=== PATIENT | male | born 1990 | race Caucasian/White ===

== ENCOUNTER 2021-08-19 16:03 | Observation (INO) ==
[2021-08-19] MEDS ORDERED: NS 1,000 ML IV 1,000 ML IV ONE ×2 (16:12→17:21)
[2021-08-19] MEDS ORDERED: NS 1,000 ML IV 1,000 ML ONE ×2 (16:14→17:00)
--- NOTE | 2021-08-19 16:18 | DR.CP ---
HPI Time Seen Time Seen by Provider: 08/19/21 16:07 Complaint Chief Complaint Doctor Comments: 30 y/o male presents for evaluation. Is a welder gas, dehydrated 2 weeks ago. Not feeling well since yesterday. + lightheaded, having neck, upper back andd chest tightness. + dizzy with standing, blurred vision. Having some nausea. Denies fever, chills, URI symptoms, bowel or bladder issues. + h/o HTN, recently had a diuretic added, did not taking this am. COVID-19 Coronavirus risk:travel/contact w/high risk person: No Has patient experienced Coronavirus symptoms: No Reviewed Nurses Notes Review: Yes Location Chest Pain Radiation Location: None Associated Signs and Symptoms Associated Signs and Symptoms: Shortness of Breath and Nausea/Vomiting PMH PMH Past Surgical History: No Family History Family Medical History: Hypertension Social History Do you use any recreational Drugs:: No Travel Risk Coronavirus risk:travel/contact w/high risk person: No Has patient experienced Coronavirus symptoms: No ROS Review of Systems Constitutional: Weakness Eyes: Blurred Vision ENTM: No Symptoms Reported Respiratoy: No Symptoms Reported Cardiovascular: Chest Pain Gastrointestinal/Abdominal: Nausea Genitourinary: No Symptoms Reported Neurological: Weakness and Dizziness Musculoskeletal: Other (muscle cramps) Integumentary: No Symptoms Reported Hematologic/Lymphatic: No Symptoms Reported Psychiatric: No Symptoms Reported All Other Systems: Reviewed and Negative PE Vitals Vitals: Temperature 97.6 F Pulse Rate 92 Respiratory Rate 16 Blood Pressure [Left Arm] 144/96 Blood Pressure [Right Arm] 136/72 Blood Pressure 106/58 O2 Sat by Pulse Oximetry 100 General Limitations: No Limitations General Appearance: Alert and In No Apparent Distress Head Head Exam: Normal Inspection Eyes Eye exam: PERRL and EOMI ENT ENT Exam: Normal Oropharynx, Mucous Membranes Moist and TM's Normal Bilaterally Chest Chest Inspection: Normal Inspection Respiratory Respiratory Exam: Normal Lung Sounds Bilat; negative Accessory Muscle Use and Respiratory Distress Respiratory Exam: Bilateral: Clear to Auscultation Cardiovascular Cardiovascular Exam: Regular Rate, Normal Rhythm and Normal Heart Sounds Abdominal Exam Abdominal Exam: Normal Inspection, Normal Bowel Sounds, Soft and Tenderness (mild, across lower abdomen) Extremities Extremities Exam: Normal Inspection and Full ROM; negative Edema Back Back Exam: Normal Inspection; negative Tenderness Neurologic Neurological Exam: Alert, Oriented X3 and CN II-XII Intact; negative Motor Sensory Deficit Psychiatric Psychiatric Exam: Normal Affect Skin Skin Exam: Warm and Dry COURSE Treatment Treatment: Pt clinically with heat exhaustion, + recently had diuretic added to his HTN medicines. W/u initiated. Given IV fluids. 1744 - labs show elevated Cr 3.5, c/w non traumatic renal injury, probably due to dehydration, heat injury. Recommend admission for further treatment, pt informed. Discussed with Dr Jorge, accepts the admission. ROR Labs Reviewed Laboratory Results Reviewed?: Yes Result Diagrams: 08/19/21 16:20 08/19/21 16:20 Laboratory: WBC 10.6 X10^3/uL (3.6-10.0) H 08/19/21 16:20 RBC 5.08 X10^6/uL (4.7-6.0) 08/19/21 16:20 Hgb 14.7 g/dL (13.5-18.0) 08/19/21 16:20 Hct 42.4 % (42.0-54.0) 08/19/21 16:20 MCV 83.4 fL (80.0-100.0) 08/19/21 16:20 MCH 28.9 pg (27.0-34.0) 08/19/21 16:20 MCHC 34.6 g/dL (33.0-35.0) 08/19/21 16:20 RDW 13.7 % (11.6-16.5) 08/19/21 16:20 Plt Count 337 X10^3/uL (150.0-450.0) 08/19/21 16:20 MPV 8.5 fL (7.4-11.0) 08/19/21 16:20 Neut % (Auto) 71.4 % (42.0-75.0) 08/19/21 16:20 Lymph % (Auto) 15.3 % (21.0-51.0) L 08/19/21 16:20 [place] % (Auto) 6.9 % (0.0-13.0) 08/19/21 16:20 Eos % (Auto) 5.7 % (0.9-2.9) H 08/19/21 16:20 Baso % (Auto) 0.7 % (0.2-1.0) 08/19/21 16:20 Neut # (Auto) 7.6 x10^3/uL (2.2-4.8) H 08/19/21 16:20 Lymph # (Auto) 1.6 X10^3/uL (1.3-2.9) 08/19/21 16:20 [place] # (Auto) 0.7 x10^3/uL (0.3-0.8) 08/19/21 16:20 Eos # (Auto) 0.6 x10^3/uL (0.0-0.2) H 08/19/21 16:20 Baso # (Auto) 0.1 X10^3/uL (0.0-0.1) 08/19/21 16:20 Absolute Nucleated RBC 0.1 /100WBC 08/19/21 16:20 Sodium 132 mmol/L (136-145) L 08/19/21 16:20 Corrected Sodium TNP 08/19/21 16:20 Potassium 3.8 mmol/L (3.5-5.1) 08/19/21 16:20 Chloride 94 mmol/L (98-107) L 08/19/21 16:20 Carbon Dioxide 27.9 mmol/L (21-32) 08/19/21 16:20 BUN 35 mg/dL (7-18) H 08/19/21 16:20 Creatinine 3.53 mg/dL (0.70-1.30) H 08/19/21 16:20 Est GFR (MDRD) Af Amer 26 (>60) L 08/19/21 16:20 Est GFR (MDRD) Non-Af 21 (>60) L 08/19/21 16:20 Glucose 93 mg/dL (65-99) 08/19/21 16:20 Calcium 9.0 mg/dL (8.5-10.1) 08/19/21 16:20 Corrected Calcium TNP 08/19/21 16:20 Total Bilirubin 0.40 mg/dL (0.2-1.0) 08/19/21 16:20 AST 16 Units/L (15-37) 08/19/21 16:20 ALT 16 Units/L (12-78) 08/19/21 16:20 Alkaline Phosphatase 86 Units/L (46-116) 08/19/21 16:20 Creatine Kinase 220 Units/L (39-308) 08/19/21 16:20 CK-MB (CK-2) 4.0 ng/mL (0-4.0) 08/19/21 16:20 CK/CKMB % Calc 1.8 % (<4) 08/19/21 16:20 Troponin I High Sens 6.6 ng/L (4.0-60.0) 08/19/21 16:20 Total Protein 7.9 g/dL (6.4-8.2) 08/19/21 16:20 Albumin 4.3 g/dL (3.4-5.0) 08/19/21 16:20 Globulin 3.6 g/dL (2.5-4.5) 08/19/21 16:20 Albumin/Globulin Ratio 1.2 Ratio (1.1-2.1) 08/19/21 16:20 Lipase 100 Units/L (73-393) 08/19/21 16:20 Other Results Comments: + abnormal kidney #s XRAY XRAY Interpreted by: Both X-ray Results: CXR without acute abnormalities EKG Rate: 83 [place]: Normal Rhythm: NSR Block: None Hypertrophy: None ST: Normal Opioid Opioid Risk Tool Age (Tera box if 16-45): Yes History of Preadolescent Sexual Abuse: No Total: 1 Total Score Risk Category: Low Risk Copyright: Billy VELÁSQUEZ predicting aberrant behaviors Diagnosis Discharge Problem: Acute nontraumatic kidney injury Instructions Forms: Precautions for COVID19 [facility] Social Distancing
[2021-08-19 16:30] LABS: BASOPHILS # (AUTO) 0.1 X10^3/uL (0.0-0.1); BASOPHILS % (AUTO) 0.7 % (0.2-1.0); EOSINOPHILS # (AUTO) 0.6 x10^3/uL (0.0-0.2); EOSINOPHILS % (AUTO) 5.7 % (0.9-2.9); HEMATOCRIT 42.4 % (42.0-54.0); HEMOGLOBIN 14.7 g/dL (13.5-18.0); LYMPHOCYTES # (AUTO) 1.6 X10^3/uL (1.3-2.9); LYMPHOCYTES % (AUTO) 15.3 % (21.0-51.0); MEAN CORPUSCULAR HEMOGLOBIN 28.9 pg (27.0-34.0); MEAN CORPUSCULAR HGB CONC 34.6 g/dL (33.0-35.0); MEAN CORPUSCULAR VOLUME 83.4 fL (80.0-100.0); MEAN PLATELET VOLUME 8.5 fL (7.4-11.0); MONOCYTES # (AUTO) 0.7 x10^3/uL (0.3-0.8); MONOCYTES % (AUTO) 6.9 % (0.0-13.0); NEUTROPHILS # (AUTO) 7.6 x10^3/uL (2.2-4.8); NEUTROPHILS % (AUTO) 71.4 % (42.0-75.0); RED BLOOD COUNT 5.08 X10^6/uL (4.7-6.0); RED CELL DISTRIBUTION WIDTH 13.7 % (11.6-16.5); WHITE BLOOD COUNT 10.6 X10^3/uL (3.6-10.0)
[2021-08-19 16:49] LABS: ALANINE AMINOTRANSFERASE 16 Units/L (12-78); ALBUMIN 4.3 g/dL (3.4-5.0); ALKALINE PHOSPHATASE 86 Units/L (46-116); ASPARTATE AMINO TRANSFERASE 16 Units/L (15-37); BLOOD UREA NITROGEN 35 mg/dL (7-18); CARBON DIOXIDE 27.9 mmol/L (21-32); CHLORIDE 94 mmol/L (98-107); CKMB % 1.8 % (<4); CREATINE KINASE 220 Units/L (39-308); CREATININE 3.53 mg/dL (0.70-1.30); LIPASE 100 Units/L (73-393); SODIUM 132 mmol/L (136-145); TOTAL PROTEIN 7.9 g/dL (6.4-8.2); eGFR NON BLACK RACES 21 (>60)
--- NOTE | 2021-08-19 16:56 | RAD ---
HISTORYRelevant Clinical Information c/o nausea, neck pain, shortness of breath, chest pressure and states "everything goes black when I move".STUDYCHEST, 1 VIEWCOMPARISONNoneFINDINGSThe trachea is midline. The cardiac silhouette is unremarkable. The lungs are clear without focal infiltrate or effusion. The bony thorax is unremarkable.IMPRESSIONNo acute cardiopulmonary disease.Electronically signed by: TAMI ANTHONY (August 19, 2021 16:55:26)
[2021-08-19 19:20] LABS: BILIRUBIN,URINE NEGATIVE (NEGATIVE); BLOOD/HEMOGLOBIN,URINE NEGATIVE (NEGATIVE); GLUCOSE, URINE NEGATIVE (NEGATIVE); KETONES,URINE NEGATIVE (NEGATIVE); LEUKOCYTE ESTERASE ,URINE 1+ (NEGATIVE); NITRITES,URINE NEGATIVE (NEGATIVE); PROTEIN,URINE 1+ (NEGATIVE); UROBILINOGEN,URINE NORMAL (NORMAL)
[2021-08-19 19:51] LABS: COLOR,URINE YELLOW (YELLOW)
[2021-08-19 19:52] LABS: APPEARANCE,URINE SLIGHTLY HAZY (CLEAR)
[2021-08-19 19:54] LABS: BACTERIA,URINE 2+ /HPF (NEGATIVE); RBC,URINE 0-2 /HPF (0-3); SQUAMOUS EPITHELIAL CELL,UR NEGATIVE /HPF (NEGATIVE)
[2021-08-19 19:55] LABS: GRANULAR CASTS,URINE FEW /LPF (NEGATIVE); HYALINE CASTS, URINE MANY /LPF (NEGATIVE)
[2021-08-19] MEDS: NS 1,000 ML IV 1,000 ML IV SCH (20:12)
[2021-08-19 21:05] VITALS: BMI 27.7
[2021-08-20] MEDS: NS 1,000 ML IV 1,000 ML IV SCH ×5 (02:01→21:02)
[2021-08-20 05:02] LABS: BASOPHILS % (AUTO) 0.6 % (0.2-1.0); EOSINOPHILS # (AUTO) 0.4 x10^3/uL (0.0-0.2); EOSINOPHILS % (AUTO) 5.7 % (0.9-2.9); HEMATOCRIT 36.7 % (42.0-54.0); LYMPHOCYTES # (AUTO) 2.8 X10^3/uL (1.3-2.9); LYMPHOCYTES % (AUTO) 43.8 % (21.0-51.0); MEAN CORPUSCULAR HEMOGLOBIN 28.6 pg (27.0-34.0); MEAN CORPUSCULAR HGB CONC 34.3 g/dL (33.0-35.0); MEAN CORPUSCULAR VOLUME 83.2 fL (80.0-100.0); MONOCYTES # (AUTO) 0.6 x10^3/uL (0.3-0.8); MONOCYTES % (AUTO) 9.6 % (0.0-13.0); NEUTROPHILS # (AUTO) 2.6 x10^3/uL (2.2-4.8); NEUTROPHILS % (AUTO) 40.3 % (42.0-75.0); RED CELL DISTRIBUTION WIDTH 13.8 % (11.6-16.5); WHITE BLOOD COUNT 6.4 X10^3/uL (3.6-10.0)
[2021-08-20 05:35] LABS: ALANINE AMINOTRANSFERASE 14 Units/L (12-78); ALKALINE PHOSPHATASE 73 Units/L (46-116); ASPARTATE AMINO TRANSFERASE 17 Units/L (15-37); BLOOD UREA NITROGEN 30 mg/dL (7-18); CALCIUM 8.1 mg/dL (8.5-10.1); CARBON DIOXIDE 26.1 mmol/L (21-32); CHLORIDE 104 mmol/L (98-107); COR CA(FOR HYPOALB) 8.9 mg/dL (8.5-10.1); SODIUM 138 mmol/L (136-145); TOTAL PROTEIN 5.9 g/dL (6.4-8.2); eGFR NON BLACK RACES 46 (>60)
[2021-08-20 05:48] LABS: HEMOGLOBIN 12.6 g/dL (13.5-18.0)
[2021-08-20] MEDS: KLONOPIN TAB 1 MG PO PRN ×2 (09:11→15:24)
--- NOTE | 2021-08-20 13:10 | DR.H&P ---
H&P History & Physical for Day of: H&P Date: 08/20/21 Chief Complaint Chief Complaint: Generalized weakness Dizziness, lightheaded Allergies Allergies Allergy/AdvReac Type Severity Reaction Status Date / Time No Known Drug Allergies Allergy Verified 04/07/18 12:01 History of Present Illness History of Present Illness: Pt is a 31 year old male with past medical history of ARASH, MAT(subutex), presenting with weakness, dizziness, lightheaded. He was recently started on hctz and has been working at his job outdoors in warm to hot temperatures. He reports feeling hot, lightheaded, for the past week. Labs/imaging: Wbc 10.6>6.4, Hgb 14.7>12.6, Plt 337>253, Na 138, K 4.1, Creatinine 3.53>1.80, Glucose 97. COVID-19 negative, CXR: No acute cardiopulmonary disease. Pt was admitted for dehydration and acute kidney injury. He was given IVF bolus NS and started on NS@150ml/h. This morning on examination he reports some improvement in his symptoms. His renal function has significantly improved. Will require at least another day of IVF hydration and can possibly be discharged over the weekend. Hold nephrotoxic agents. Continue to closely monitor and follow up labs in the morning. Past Medical History Past Medical History: Hypertension Past Surgical History Surgical History: Ortho Surgery Family History Family Medical History: Coronary Artery Disease and Hypertension Social History Does patient currently use any type of tobacco product: Yes Have you used tobacco products in the last 12 months: Yes Type of Tobacco Use: Cigarettes How many years tobacco product used: 18 Does any household member use tobacco: Yes Alcohol Use: None Drug Use: Prescription Drugs Medications Home Medications: No Known Drug Allergies Allergy (Verified 04/07/18 12:01) CONTINUE taking the following medications buprenorphine HCl [Subutex] 8 mg SUBLINGUAL BID 08/19/21 [History] clonazepam 1 mg PO BID PRN 08/19/21 [History] hydrochlorothiazide 25 mg PO DAILY 08/19/21 [History] lisinopril 20 mg PO DAILY 08/19/21 [History] Labs Result Diagrams: 08/20/21 03:36 08/20/21 03:36 Labs: 08/19/21 19:05 Urine,Clean Catch Urine Culture - Preliminary Laboratory WBC 6.4 X10^3/uL (3.6-10.0) 08/20/21 03:36 RBC 4.40 X10^6/uL (4.7-6.0) L 08/20/21 03:36 Hgb 12.6 g/dL (13.5-18.0) L D 08/20/21 03:36 Hct 36.7 % (42.0-54.0) L 08/20/21 03:36 MCV 83.2 fL (80.0-100.0) 08/20/21 03:36 MCH 28.6 pg (27.0-34.0) 08/20/21 03:36 MCHC 34.3 g/dL (33.0-35.0) 08/20/21 03:36 RDW 13.8 % (11.6-16.5) 08/20/21 03:36 Plt Count 253 X10^3/uL (150.0-450.0) 08/20/21 03:36 MPV 9.0 fL (7.4-11.0) 08/20/21 03:36 Neut % (Auto) 40.3 % (42.0-75.0) L 08/20/21 03:36 Lymph % (Auto) 43.8 % (21.0-51.0) 08/20/21 03:36 [place] % (Auto) 9.6 % (0.0-13.0) 08/20/21 03:36 Eos % (Auto) 5.7 % (0.9-2.9) H 08/20/21 03:36 Baso % (Auto) 0.6 % (0.2-1.0) 08/20/21 03:36 Neut # (Auto) 2.6 x10^3/uL (2.2-4.8) 08/20/21 03:36 Lymph # (Auto) 2.8 X10^3/uL (1.3-2.9) 08/20/21 03:36 [place] # (Auto) 0.6 x10^3/uL (0.3-0.8) 08/20/21 03:36 Eos # (Auto) 0.4 x10^3/uL (0.0-0.2) H 08/20/21 03:36 Baso # (Auto) 0.0 X10^3/uL (0.0-0.1) 08/20/21 03:36 Absolute Nucleated RBC 0.0 /100WBC 08/20/21 03:36 Sodium 138 mmol/L (136-145) 08/20/21 03:36 Corrected Sodium TNP 08/20/21 03:36 Potassium 4.1 mmol/L (3.5-5.1) 08/20/21 03:36 Chloride 104 mmol/L (98-107) 08/20/21 03:36 Carbon Dioxide 26.1 mmol/L (21-32) 08/20/21 03:36 BUN 30 mg/dL (7-18) H 08/20/21 03:36 Creatinine 1.80 mg/dL (0.70-1.30) H 08/20/21 03:36 Est GFR (MDRD) Af Amer 56 (>60) L 08/20/21 03:36 Est GFR (MDRD) Non-Af 46 (>60) L 08/20/21 03:36 Glucose 97 mg/dL (65-99) 08/20/21 03:36 POC Glucose (mg/dL) 124 mg/dL (65-99) H 08/20/21 11:36 Calcium 8.1 mg/dL (8.5-10.1) L 08/20/21 03:36 Corrected Calcium 8.9 mg/dL (8.5-10.1) 08/20/21 03:36 Total Bilirubin 0.20 mg/dL (0.2-1.0) 08/20/21 03:36 AST 17 Units/L (15-37) 08/20/21 03:36 ALT 14 Units/L (12-78) 08/20/21 03:36 Alkaline Phosphatase 73 Units/L (46-116) 08/20/21 03:36 Creatine Kinase 220 Units/L (39-308) 08/19/21 16:20 CK-MB (CK-2) 4.0 ng/mL (0-4.0) 08/19/21 16:20 CK/CKMB % Calc 1.8 % (<4) 08/19/21 16:20 Troponin I High Sens 6.6 ng/L (4.0-60.0) 08/19/21 16:20 Total Protein 5.9 g/dL (6.4-8.2) L 08/20/21 03:36 Albumin 3.0 g/dL (3.4-5.0) L 08/20/21 03:36 Globulin 2.9 g/dL (2.5-4.5) 08/20/21 03:36 Albumin/Globulin Ratio 1.0 Ratio (1.1-2.1) L 08/20/21 03:36 Lipase 100 Units/L (73-393) 08/19/21 16:20 Specimen Type Clean catch urine 08/19/21 19:05 Urine Color Yellow (YELLOW) 08/19/21 19:05 Urine Appearance Slightly hazy (CLEAR) 08/19/21 19:05 Urine pH 5.0 (5.0 - 8.0) 08/19/21 19:05 Ur Specific [place] 1.015 (1.000-1.030) 08/19/21 19:05 Urine Protein 1+ (NEGATIVE) 08/19/21 19:05 Urine Glucose (UA) Negative (NEGATIVE) 08/19/21 19:05 Urine Ketones Negative (NEGATIVE) 08/19/21 19:05 Urine Blood Negative (NEGATIVE) 08/19/21 19:05 Urine Nitrite Negative (NEGATIVE) 08/19/21 19:05 Urine Bilirubin Negative (NEGATIVE) 08/19/21 19:05 Urine Urobilinogen Normal (NORMAL) 08/19/21 19:05 Ur Leukocyte Esterase 1+ (NEGATIVE) 08/19/21 19:05 Urine RBC 0-2 /HPF (0-3) 08/19/21 19:05 Urine WBC 5-10 /HPF (0-5) A 08/19/21 19:05 Ur Squamous Epith Cells Negative /HPF (NEGATIVE) 08/19/21 19:05 Urine Bacteria 2+ /HPF (NEGATIVE) 08/19/21 19:05 Hyaline Casts Many /LPF (NEGATIVE) 08/19/21 19:05 Granular Casts Few /LPF (NEGATIVE) 08/19/21 19:05 Ur Culture Indicated? Yes/culture set up 08/19/21 19:05 SARS-CoV-2 (PCR) Negative (NEGATIVE) 08/19/21 18:41 Review of Systems Constitutional: Weakness; denies Fever and Chills Eyes: No Symptoms Reported ENT: No Symptoms Reported Respiratory: No Symptoms Reported Cardiovascular: No Symptoms Reported Gastrointestinal: No Symptoms Reported Genitourinary: No Symptoms Reported Musculoskeletal: No Symptoms Reported Skin: No Symptoms Reported Neurological: No Symptoms Reported Physical Exam Vital Signs: Temperature 97.6 F Pulse Rate [Right] 80 Pulse Rate 78 Respiratory Rate 24 Blood Pressure [Left Arm] 116/60 Blood Pressure [Right Arm] 136/72 Blood Pressure 108/53 O2 Sat by Pulse Oximetry 95 Oriented: Normal Eyes: Normal Ear: Normal Nose: Normal Throat: Normal Respiratory: Clear Throughout Cardiovascular: Normal : Normal Auscultation: Bowel Sounds: Normal Palpation: Normal Tenderness: Normal Skin: Normal Musculoskeletal: Normal Psychiatric: Normal Mood Description: Calm and Appropriate Affect: Normal Speech Pattern: Clear and Appropriate Assessment/Plan (1) Dehydration: Status: Acute Plan: IVF (2) YAZAN (acute kidney injury): Status: Acute Plan: Trend renal function Hold nephrotoxic agents. Review H&P Reviewed: Yes Patient was examined?: Yes
[2021-08-21] MEDS: NS 1,000 ML IV 1,000 ML IV SCH (03:32)
[2021-08-21 05:42] LABS: BASOPHILS % (AUTO) 0.7 % (0.2-1.0); EOSINOPHILS # (AUTO) 0.4 x10^3/uL (0.0-0.2); EOSINOPHILS % (AUTO) 6.1 % (0.9-2.9); HEMATOCRIT 35.2 % (42.0-54.0); HEMOGLOBIN 12.1 g/dL (13.5-18.0); LYMPHOCYTES # (AUTO) 2.5 X10^3/uL (1.3-2.9); MEAN CORPUSCULAR HEMOGLOBIN 28.5 pg (27.0-34.0); MEAN CORPUSCULAR HGB CONC 34.4 g/dL (33.0-35.0); MEAN CORPUSCULAR VOLUME 83.1 fL (80.0-100.0); MONOCYTES # (AUTO) 0.6 x10^3/uL (0.3-0.8); MONOCYTES % (AUTO) 9.9 % (0.0-13.0); NEUTROPHILS # (AUTO) 2.4 x10^3/uL (2.2-4.8); NEUTROPHILS % (AUTO) 41.3 % (42.0-75.0); RED BLOOD COUNT 4.24 X10^6/uL (4.7-6.0); WHITE BLOOD COUNT 5.9 X10^3/uL (3.6-10.0)
[2021-08-21 05:54] LABS: ALANINE AMINOTRANSFERASE 11 Units/L (12-78); ALBUMIN 2.6 g/dL (3.4-5.0); ALKALINE PHOSPHATASE 81 Units/L (46-116); ASPARTATE AMINO TRANSFERASE 12 Units/L (15-37); BLOOD UREA NITROGEN 13 mg/dL (7-18); CARBON DIOXIDE 27.6 mmol/L (21-32); CHLORIDE 107 mmol/L (98-107); COR CA(FOR HYPOALB) 9.1 mg/dL (8.5-10.1); CREATININE 1.02 mg/dL (0.70-1.30); SODIUM 139 mmol/L (136-145); TOTAL PROTEIN 5.3 g/dL (6.4-8.2); eGFR NON BLACK RACES > 60 (>60)
[2021-08-21] MEDS ORDERED: K-RIDER 10 MEQ/NS 100 ML 10 MEQ/100 ML BAG IV PRN (06:16)
[2021-08-21] MEDS ORDERED: POTASSIUM CHLORIDE LIQ 20 MEQ UDC PO PRN (06:16)
[2021-08-21] MEDS ORDERED: K-DUR TAB 20 MEQ PO PRN (06:16)
[2021-08-21] MEDS ORDERED: MICRO K EXTEN CAP 10 MEQ PO PRN (06:16)
[2021-08-21] MEDS ORDERED: KLOR-CON PO PRN (06:16)
[2021-08-21 08:16] VITALS: BP 123/59
== END 2021-08-21 11:00 | disposition home or self-care (01) ==
LOC: ER 16:03 → ICU 16:03 → MED/SURG 08-20 15:15
PROVIDERS: ADMIT Family Medicine; ATTEND Family Medicine